=== PATIENT | male | born 1990 | race Caucasian/White ===

== ENCOUNTER 2017-03-27 16:14 | Emergency (ER) | payer SELFPAY ==
[~2017-03-27] VITALS: Ht 182.9 cm; Wt 65.8 kg
[2017-03-27 16:34] VITALS: BP 161/82
--- NOTE | 2017-03-27 16:50 | PHYS DOC ---
Adult General Chief Complaint Chief Complaint: HEADACHE HPI HPI Patient is a 26 year old male who presents with in his frontal area is constant. He states he woke up with this morning he has numbness in his posterior scalp. He does use cocaine about twice a month any use it on . He denies any nausea, photophobia or phonophobia and nuchal rigidity that's associated with this. He states he never gets headaches and this is completely different than normal for him. He denies any fevers chills nausea or vomiting. Review of Systems Review of Systems Constitutional: Denies fever or chills [] Eyes: Denies change in visual acuity, redness, or eye pain [] HENT: Denies nasal congestion or sore throat [] Respiratory: Denies cough or shortness of breath [] Cardiovascular: No additional information not addressed in HPI [] GI: Denies abdominal pain, nausea, vomiting, bloody stools or diarrhea [] : Denies dysuria or hematuria [] Musculoskeletal: Denies back pain or joint pain [] Integument: Denies rash or skin lesions [] Neurologic: Positive for headache, and sensory changes, Denies focal weakness [] Endocrine: Denies polyuria or polydipsia [] Current Medications Current Medications Current Medications Medications (Trade) Dose Ordered Sig/[facility] Start Time Stop Time Status Last Admin Dose Admin Ketorolac Tromethamine (Toradol Im) 60 mg 1X ONCE 03/27/17 18:45 03/27/17 18:46 DC Allergies Allergies Allergies Coded Allergies Type Severity Reaction Last Updated Verified No Known Drug Allergies 03/27/17 No Physical Exam Physical Exam Constitutional: Well developed, well nourished, no acute distress, non-toxic appearance. [] HENT: Normocephalic, atraumatic, bilateral external ears normal, oropharynx moist, no oral exudates, nose normal. [] Eyes: PERRLA, EOMI, conjunctiva normal, no discharge. [] Neck: Normal range of motion, no tenderness, supple, no stridor. [] Cardiovascular:Heart rate regular rhythm, no murmur [] Lungs & Thorax: Bilateral breath sounds clear to auscultation [] Abdomen: Bowel sounds normal, soft, no tenderness, no masses, no pulsatile masses. [] Skin: Warm, dry, no erythema, no rash. [] Back: No tenderness, no CVA tenderness. [] Extremities: No tenderness, no cyanosis, no clubbing, ROM intact, no edema. [] Neurologic: Alert and oriented X 3, normal motor function, normal sensory function, no focal deficits noted. [] Psychologic: Affect normal, judgement normal, mood normal. [] Current Patient Data Vital Signs Vital Signs Date Time Temp Pulse Resp B/P (MAP) Pulse Ox O2 Delivery O2 Flow Rate FiO2 03/27/17 16:34 97.5 64 14 161/82 (108) 100 Room Air 97.5 EKG EKG [] Radiology/Procedures Radiology/Procedures [facility] [address] [place] [address] IMAGING REPORT Signed PATIENT: NATHAN JOVEL ACCOUNT: [id number] : 1990 LOCATION: ER AGE: 26 SEX: M EXAM STATUS: REG ER ORD. PHYSICIAN: BERTO CORTES MD REASON: headache PROCEDURE: CT HEAD WO CONTRAST CT head without contrast TECHNIQUE: [address] imaging skull base to vertex. HISTORY: Headache, head numbness. FINDINGS: No intracranial hemorrhage, mass, hydrocephalus, extra-axial fluid collections or infarction. No acute ischemic changes. Orbits, paranasal sinuses, mastoids and bones are unremarkable. IMPRESSION: No acute intracranial CT abnormality. Exposure: One or more of the following individualized dose reduction techniques were utilized for this examination: 1. Automated exposure control 2. Adjustment of the mA and/or kV according to patient size 3. Use of iterative reconstruction technique Electronically signed by: Lencho Chamberlain MD (03/27/2017 6:10 PM) DICTATED and SIGNED BY: LENCHO CHAMBERLAIN MD DATE: 03/27/17 1809 CC: BERTO CORTES MD; NO PCP ~ Impressions: Headache Course & Med Decision Making Course & Med Decision Making Pertinent Labs and Imaging studies reviewed. (See chart for details) Labs, vitals are nonacute. CT of his head or nonacute. Patient being discharged home with Flexeril for possible neck muscle spasm. He is agreeable to the plan and being discharged in stable condition this time. He is cautioned about using Flexeril driving. He is return back to ER if his pain gets worse she has any focal neurological deficits or other concerns. Dragon Disclaimer Dragon Disclaimer This electronic medical record was generated, in whole or in part, using a voice recognition dictation system. Departure Departure Impression: Primary Impression: Headache Disposition: 01 HOME, SELF-CARE Patient Instructions: Muscle Cramps Additional Instructions: The CAT scan of her head did not show any acute abnormalities. You likely have a muscle spasm. You can take Flexeril which is a muscle relaxant every 8 hours as needed. Be careful taking this medicine as it can make you sleepy. He should follow up with her primary care physician or return back to ER if your headache gets worse. Return ER if you have severe neck pain, numbness in her fingers toes , weakness or other concerns Scripts Cyclobenzaprine Hcl (CYCLOBENZAPRINE HCL) 10 Mg Tablet 1 TAB PO TID Y for MUSCLE SPASMS, #30 TAB Prov: BERTO CORTES MD 03/27/17 Problem Qualifiers Primary Impression: Headache Headache type: unspecified BERTO CORTES MD Mar 27, 2017 16:50
--- NOTE | 2017-03-27 18:13 | RAD ---
CT head without contrast TECHNIQUE: [address] imaging skull base to vertex. HISTORY: Headache, head numbness. FINDINGS: No intracranial hemorrhage, mass, hydrocephalus, extra-axial fluid collections or infarction. No acute ischemic changes. Orbits, paranasal sinuses, mastoids and bones are unremarkable. IMPRESSION: No acute intracranial CT abnormality. Exposure: One or more of the following individualized dose reduction techniques were utilized for this examination: 1. Automated exposure control 2. Adjustment of the mA and/or kV according to patient size 3. Use of iterative reconstruction technique Electronically signed by: Duc Chamberlain MD (03/27/2017 6:10 PM)
[2017-03-27] MEDS ORDERED: KETOROLAC TROMETHAMINE 60 MG/2 ML INJ. IM ONE (18:45)
[2017-03-27] MEDS ORDERED: CYCL10TA2 PO (19:02)
[2017-03-27] MEDS ORDERED: CYCLOBENZAPRINE 10 MG TABLET. PO ONE (19:15)
--- NOTE | 2017-03-29 13:32 | EKG ---
[facility] [address] [place] [address] Test Date: 2017-03-27 Test Time: 16:34:32 Pat Name: NATHAN JOVEL Department: Room: Gender: M Desktop Engineer: : 1990 Requested By: BERTO CORTES Order Number: [id number] Reading MD: Gianluca Jenkins Measurements Intervals [place] Rate: 67 P: 36 SD: 134 QRS: 68 QRSD: 94 T: 15 QT: 378 QTc: 402 Interpretive Statements SINUS RHYTHM Electronically Signed On 03-29-2017 16:54:51 CDT by Gianluca Jenkins
[2017-03-31 15:14] LABS: POTASSIUM ISTAT 3.8 mmol/L (3.5-5.0)
== END 2017-03-27 19:14 | disposition home or self-care (01) ==
LOC: ER 16:14
DX: R51 Headache (principal); R20.0 Anesthesia of skin
CPT/HCPCS: 70450; 80047; 93005; 99284-25